=== PATIENT | female | born 1945 | race Caucasian/White ===

== ENCOUNTER → 2016-09-15 | Outpatient (CLI) | payer BC ==
[~2016-09-15] MED LIST: AMOX500T3 PO; CHOL1000 PO; CHOL100010 PO; FERR325T18 PO; FERR325T74 PO; HYDR25TA4 PO; LEVO100T PO; LEVO112T4 PO; LOSA1TAB38 PO; METO1TAB66 PO; NYSO15 TOP; NYSTOIN5 TOP; WARF5TAB7 PO; WARF5TAB90 PO; WARF6TAB5 PO; ZCR20 PO
--- NOTE | 2016-09-15 13:11 | DIAGNOSTIC IMAGING REPORT ---
RIGHT KNEE MRI HISTORY: Right knee pain. COMPARISON STUDY: Right knee 05/08/2016. TECHNIQUE: Multiplanar multisequence MRI of the right knee was performed according to standard department protocol without the use of contrast. FINDINGS: Menisci: There is a horizontal tear through the body of the lateral meniscus. This is best seen on coronal image 16. The medial meniscus is intact. Ligaments: The anterior and posterior cruciate ligaments are intact. The medial and lateral collateral ligaments are normal in appearance. Extensor mechanism: The quadriceps tendon and patellar ligament are intact. Articular cartilage and bone: No fracture or dislocation. Normal marrow signal intensity seen throughout the visualized osseous structures. The medial and lateral cartilage spaces are intact for age. There is a cartilage fissure at the lateral patellar facet and extend to the median ridge. Joint effusion: Trace. Soft tissues: Mild subcutaneous edema within the knee. There is a small popliteal cyst. There is a 4 mm intra-articular loose body posterior to the medial meniscus. IMPRESSION: 1. Small horizontal tear through the body of the lateral meniscus. 2. A 4 mm intra-articular loose body posterior to the medial meniscus. 3. Trace joint effusion. 4. Small popliteal cyst. 5. Cartilage fissure at the patella. Electronically signed by: Gerson Tian M.D. 09/15/2016 1:09 PM Dictated Date/Time: 09/15/2016 1:02 PM
== END | disposition home or self-care (01) ==
LOC: C.MRIBC 11:29
PROVIDERS: ATTEND Orthopaedic Surgery
DX: S83.281A Other tear of lateral meniscus, current injury, right knee, initial encounter (principal); X58.XXXA Exposure to other specified factors, initial encounter

== ENCOUNTER → 2016-10-23 | Outpatient (CLI) | payer BC ==
[2016-10-23 17:25] LABS: ALT/SGPT 20 U/L (12-78); BLOOD UREA NITROGEN 28 mg/dl (7-18); BUN/CREATININE RATIO 28.3 (10-20); CALCIUM 8.5 mg/dl (8.5-10.1); CARBON DIOXIDE 26 mmol/L (21-32); CHLORIDE 103 mmol/L (98-107); CREATININE 0.98 mg/dl (0.60-1.20); GLUCOSE 84 mg/dl (70-99); SODIUM 137 mmol/L (136-145)
[2016-10-23 17:35] LABS: ALB/GLOB RATIO 0.9 (0.9-2); ALKALINE PHOSPHATASE 156 U/L (45-117); AST/SGOT 23 U/L (15-37); THYROID STIMULATING HORMONE 0.182 uIu/ml (0.300-4.500)
[2016-10-23 17:37] LABS: BASO % 0.5 %; BASO ABS # 0.03 K/uL (0-0.2); COMPLETE YES; EOS % 2.9 %; HEMATOCRIT 36.2 % (37-47); LYMPH % 18.7 %; LYMPH ABS # 1.03 K/uL (1.2-3.4); MEAN CORPUSCULAR HEMOGLOBIN 26.6 pg (25-34); MEAN PLATELET VOLUME 10.6 fL (7.4-10.4); MONO % 8.7 %; NEUT % 69.2 %; PLATELET COUNT 332 K/uL (130-400); RED BLOOD COUNT 4.36 M/uL (4.2-5.4)
[2016-10-24 06:14] LABS: ESTIMATED AVERAGE GLUCOSE 120 mg/dl; HA1C FLAG Normal (Normal)
== END | disposition home or self-care (01) ==
LOC: C.LABBFT 12:09
PROVIDERS: ATTEND Internal Medicine
DX: I10 Essential (primary) hypertension (principal); R73.03 Prediabetes; E55.9 Vitamin D deficiency, unspecified; E03.9 Hypothyroidism, unspecified; Z95.2 Presence of prosthetic heart valve; R73.09 Other abnormal glucose

== ENCOUNTER → 2016-11-03 | Outpatient (CLI) | payer BC ==
[2016-11-03 12:35] LABS: URINE APPEARANCE CLOUDY (CLEAR); URINE BILIRUBIN NEG (NEG); URINE COLOR YELLOW; URINE EPITHELIAL CELL AUTO >30 /lpf (0-5); URINE NITRITE NEG (NEG); URINE SPECIFIC GRAVITY 1.008 (1.000-1.030); UROBILINOGEN NEG (NEG); ZZUR CULT IF INDIC CLEAN CATCH NO
[2016-11-03 12:39] LABS: MANUAL MICROSCOPIC REQUIRED? NO; REVIEW REQ? NO
== END | disposition home or self-care (01) ==
LOC: C.LABBFT 09:11
PROVIDERS: ATTEND Internal Medicine
DX: I10 Essential (primary) hypertension (principal); E78.5 Hyperlipidemia, unspecified

== ENCOUNTER → 2016-11-27 | Outpatient (CLI) | payer BC ==
[~2016-11-27] MED LIST changes: +METO-452 PO; -METO1TAB66 PO
== END | disposition home or self-care (01) ==
LOC: C.LABBFT 15:41
PROVIDERS: ATTEND Physician Assistant Medical
DX: E03.9 Hypothyroidism, unspecified (principal)

== ENCOUNTER 2017-04-16 00:10 | Emergency (ER) | payer BC ==
[~2017-04-16] VITALS: Ht 171.5 cm; Wt 91.9 kg
[~2017-04-16 00:10] MED LIST changes: -CHOL1000 PO; -FERR325T18 PO; -LEVO100T PO; -METO-452 PO; +METO1TAB66 PO; -NYSTOIN5 TOP; -WARF5TAB90 PO
[2017-04-16 00:14] VITALS: TEMP 36.8; Ht 171.5 cm; Wt 91.9 kg
[2017-04-16] MEDS ORDERED: HydrALAZINE HCL 20 MG/ML VIAL IV. STA (00:31)
[2017-04-16] MEDS ORDERED: LEVO100T PO (00:44)
[2017-04-16] MEDS ORDERED: CHOL1000 PO (00:44)
--- NOTE | 2017-04-16 00:45 | EMERGENCY ROOM VISIT NOTE ---
"History Report prepared by Brandon: Dniorah Tejada Under the Supervision of: Dr. Jonas Lundberg M.D. First contact with patient: 00:22 Chief Complaint: HYPERTENSION Stated Complaint: BLOOD PRESSURE HIGH,HEART History of Present Illness The patient is a 71 year old female who presents to the Emergency Room with complaints of an episode of hypertension starting this evening. The patient notes that she has had chest pressure for 2 days. She states that while watching TV this evening she got a warm feeling that started in her head and radiated down into her chest. She reports that she checked her blood pressure and it was high. She states that she does not have the chest pressure currently. The patient denies abdominal pain, shortness of breath, swelling in legs, urinary symptoms, and recent stress tests and heart catheterizations. The patient notes that she took her blood pressure before coming in. She states that she is on Metoprol 100 mg PID, Hydrochlorothiazide 25 mg daily, and Losartan 100 mg daily. She notes that she is on Coumadin. Source of History: patient Onset: this evening Position: other (global) Quality: other (global) Timing: other (episode) Associated Symptoms: + chest pain, No SOB, No abdominal pain, No urinary symptoms Note: The patient denies swelling in legs and recent stress tests and heart catheterizations. Review of Systems See HPI for pertinent positives & negatives. A total of 10 systems reviewed and were otherwise negative. Past Medical & Surgical Medical Problems: (1) Anticoagulant long-term use (2) Carotid stenosis (3) High cholesterol (4) History of epistaxis (5) HTN (hypertension) Surgical Problems: (1) S/P AVR (aortic valve replacement) Family History No pertinent family history Social History Smoking Status: Never Smoker Drug Use: none Marital Status: single Housing Status: lives alone Occupation Status: employed Current/Historical Medications Scheduled Cholecalciferol (Vitamin D3), 1,000 UNIT PO DAILY Ferrous Gluconate (Ferrous Gluconate), 324 MG PO 2XWK Hydrochlorothiazide (Hctz), 25 MG PO QAM Levothyroxine Sodium (Synthroid), 100 MCG PO QAM Losartan Potassium (Cozaar), 100 MG PO QAM Metoprolol Succinate (Toprol Xl), 50 MG PO BID Nystatin/Triamcinolone (Mycogen ||), 1 APPLN TOP BID Simvastatin (Simvastatin), 20 MG PO QPM Warfarin Sodium (Coumadin), 5 MG PO UD Allergies Coded Allergies: No Known Allergies (Unverified , 04/16/17) Physical Exam Vital Signs Date Time Temp Pulse Resp B/P (MAP) Pulse Ox O2 Delivery O2 Flow Rate FiO2 04/16/17 03:07 61 18 161/85 96 04/16/17 01:30 56 18 130/70 96 Room Air 04/16/17 01:06 59 18 158/80 97 Room Air 04/16/17 01:02 60 04/16/17 01:01 55 18 162/79 97 Room Air 04/16/17 00:14 36.8 72 20 206/87 98 Room Air Physical Exam GENERAL: Patient is mildly anxious appearing and in no acute distress. HEENT: No acute trauma, normocephalic atraumatic, mucous membranes moist, no nasal congestion, no scleral icterus. NECK: No stridor, no adenopathy, no meningismus, trachea is midline. LUNGS: No dyspnea. Clear to auscultation and equal bilaterally. No wheeze, no rhonchi. HEART: Regular rate and rhythm. Metallic heart click. No murmurs, rubs, gallops appreciated. ABDOMEN: Soft, nontender, bowel sounds positive, no masses appreciated, no peritonitis. BACK: No midline tenderness, no CVA tenderness EXTREMITIES: Normal motion all extremities, no cyanosis, no edema. NEUROLOGIC: Alert and oriented, no acute motor or sensory deficits, no focal weakness, cranial nerves grossly intact. SKIN: No rash, no jaundice, no diaphoresis. Medical Decision & Procedures ER Provider Diagnostic Interpretation: X ray results are stated below per my interpretation: Chest: 1 view: No infiltrate, no effusion, normal cardiac border. Elevated left sheila diaphragm. Similar to previous. Laboratory Results 04/16/17 00:45 Red Blood Count 4.20, Mean Corpuscular Volume 85.5, Mean Corpuscular Hemoglobin 27.6, Mean Corpuscular Hemoglobin Concent 32.3, Mean Platelet Volume 10.3, Neutrophils (%) (Auto) 63.6, Lymphocytes (%) (Auto) 22.1, Monocytes (%) (Auto) 9.7, Eosinophils (%) (Auto) 4.1, Basophils (%) (Auto) 0.3, Neutrophils # (Auto) 3.69, Lymphocytes # (Auto) 1.28, Monocytes # (Auto) 0.56, Eosinophils # (Auto) 0.24, Basophils # (Auto) 0.02 04/16/17 00:45 Test 04/16/17 00:45 04/16/17 00:57 04/16/17 02:36 White Blood Count 5.80 K/uL (4.8-10.8) Red Blood Count 4.20 M/uL (4.2-5.4) Hemoglobin 11.6 g/dL (12.0-16.0) Hematocrit 35.9 % (37-47) Mean Corpuscular Volume 85.5 fL (80-100) Mean Corpuscular Hemoglobin 27.6 pg (25-34) Mean Corpuscular Hemoglobin Concent 32.3 g/dl (32-36) Platelet Count 214 K/uL (130-400) Mean Platelet Volume 10.3 fL (7.4-10.4) Neutrophils (%) (Auto) 63.6 % Lymphocytes (%) (Auto) 22.1 % Monocytes (%) (Auto) 9.7 % Eosinophils (%) (Auto) 4.1 % Basophils (%) (Auto) 0.3 % Neutrophils # (Auto) 3.69 K/uL (1.4-6.5) Lymphocytes # (Auto) 1.28 K/uL (1.2-3.4) Monocytes # (Auto) 0.56 K/uL (0.11-0.59) Eosinophils # (Auto) 0.24 K/uL (0-0.5) Basophils # (Auto) 0.02 K/uL (0-0.2) RDW Standard Deviation 49.2 fL (36.4-46.3) RDW Coefficient of Variation 15.7 % (11.5-14.5) Immature Granulocyte % (Auto) 0.2 % Immature Granulocyte # (Auto) 0.01 K/uL (0.00-0.02) Prothrombin Time 16.3 SECONDS (9.0-12.0) Prothromb Time International Ratio 1.5 (0.9-1.1) Anion Gap 5.0 mmol/L (3-11) Est Creatinine Clear Calc Drug Dose 63.7 ml/min Estimated GFR () 68.2 Estimated GFR (Non- 58.9 BUN/Creatinine Ratio 16.9 (10-20) Calcium Level 8.2 mg/dl (8.5-10.1) Troponin I < 0.015 ng/ml (0-0.045) Urine Color YELLOW Urine Appearance CLEAR (CLEAR) Urine pH 5.0 (4.5-7.5) Urine Specific [place] 1.012 (1.000-1.030) Urine Protein NEG (NEG) Urine Glucose (UA) NEG (NEG) Urine Ketones NEG (NEG) Urine Occult Blood NEG (NEG) Urine Nitrite NEG (NEG) Urine Bilirubin NEG (NEG) Urine Urobilinogen NEG (NEG) Urine Leukocyte Esterase MODERATE (NEG) Urine WBC (Auto) 5-10 /hpf (0-5) Urine RBC (Auto) 0-4 /hpf (0-4) Urine Hyaline Casts (Auto) 1-5 /lpf (0-5) Urine Epithelial Cells (Auto) >30 /lpf (0-5) Urine Bacteria (Auto) NEG (NEG) Bedside Troponin I < 0.030 ng/ml (0-0.045) Laboratory results as reviewed by me. ECG Indication: other (hypertension) Rate (beats per minute): 67 Rhythm: sinus rhythm Findings: 1st degree AV block, nonspecific-ST abn (without STEMI), no ectopy ED Course 0025: The patient was evaluated in room B11B. A complete history and physical exam was performed. 0031: Ordered Hydralazine HCl 10 mg IV. 0104: The patient's blood pressure came down before the medication could be delivered. 0202: I reevaluated the patient. Her blood pressure was 130/68. The patient is experiencing no further symptoms. I discussed observation vs repeat troponin and a follow up with PCP as our future plans. She notes she would rather be discharged and follow up with her PCP, but repeat her troponin first. 0259: Reevaluated the patient. Discussed results and discharge instructions: She verbalized understanding and agreement. The patient is ready for discharge. Medical Decision Differential: Benign Hypertension, Hypertensive Urgency/Emergency, Cardiovascular Pathology, Endocrine, Metabolic/Electrolyte, Renal Disease, End- organ Damage, amongst other pathologies entertained. 71 yr old pleasant female arrives for evaluation of hypertension. Notes a few episodes of fleeting anterior chest pain a few days ago though none in last 24 hours. Tonight with feeling flushed/head fullness which lead to checking BP which was elevated. Thus came in to ED for further evaluation. Admits taking BP meds [employer] and while here BP trending to normal without intervention. CXR, EKG , OK. Trop wnl x 2. Inr on low side for mechanical valve though she notes they keep her around 1.9-2.5 and she will discuss this evenings INR with PCP. No evidence infection. UA dirty without evidence of acute infection. We discussed bringing in for cardiac rule out though would be obs and she has close monitoring with cards and her PCP. We discussed that Trop negative means unlikely there was cardiac ischemia, however it does not rule out narrowing of arteries and that with her history she could have ACS any time in further and thus symptoms requiring RTED. She is comfortable with this plan and agrees. She did eventually admit to me that she has been very stressed recently due to family issues and feels that much of this is stress related, which I accepted is a definitive possibility. She will discuss this as well with her PCP. Medication Reconcilliation Current Medication List: was personally reviewed by me Blood Pressure Screening Patient's blood pressure: Elevated blood pressure Blood pressure disposition: Referred to PCP Impression Primary Impression: Hypertension Additional Impression: Chest pain Scribe Attestation The scribe's documentation has been prepared under my direction and personally reviewed by me in its entirety. I confirm that the note above accurately reflects all work, treatment, procedures, and medical decision making performed by me. Departure Information Dispostion Home / Self-Care Referrals Antony Rodriguez M.D. (PCP) Forms HOME CARE DOCUMENTATION FORM, IMPORTANT VISIT INFORMATION, WORK / SCHOOL INSTRUCTIONS Patient Instructions My [facility] Additional Instructions Your blood pressure was elevated during this visit. This is quite common in many people who are being evaluated in the Emergency Department for many reasons. However, it is important that you have your Primary Care Provider recheck your blood pressure and discuss whether treatment will be needed. [facility] elevated blood pressure can lead to strokes, heart attacks, kidney failure amongst other medical issues. If you develop severe headaches, chest pain, weakness in arms or legs, or other concerning symptoms call 911. Chest pain can be due to a variety of reasons. At this time there is no evidence of heart damage, however this does not rule out any narrowing of arteries. You should call your primary care provider or skip tender as soon as possible to set up appointment for further testing and evaluation, which may including stress testing. If you develop worsening chest pain/pressure, prolonged symptoms, passing out, shortness of breath, or other concerns, call 911 or return immediately for further evaluation. Your INR was 1.5 this evening. This is on the low side and should be discussed with your Coumadin clinic. They may wish you to increase your Coumadin, or just repeat your INR during normal hours. Problem Qualifiers"
[2017-04-16] MEDS ORDERED: WARF5TAB90 PO (00:47)
[2017-04-16] MEDS ORDERED: FERR325T18 PO (00:47)
[2017-04-16] MEDS ORDERED: NYSTOIN5 TOP (00:49)
[2017-04-16 01:03] LABS: BASO % 0.3 %; BASO ABS # 0.02 K/uL (0-0.2); COMPLETE YES; EOS % 4.1 %; HEMATOCRIT 35.9 % (37-47); IG% 0.2 %; LYMPH % 22.1 %; LYMPH ABS # 1.28 K/uL (1.2-3.4); MEAN CELL VOLUME 85.5 fL (80-100); MEAN CORPUSCULAR HEMOGLOBIN 27.6 pg (25-34); MEAN CORPUSCULAR HGB CONC 32.3 g/dl (32-36); MEAN PLATELET VOLUME 10.3 fL (7.4-10.4); MONO % 9.7 %; NEUT % 63.6 %; PLATELET COUNT 214 K/uL (130-400)
[2017-04-16 01:14] LABS: URINE APPEARANCE CLEAR (CLEAR); URINE BILIRUBIN NEG (NEG); URINE COLOR YELLOW; URINE EPITHELIAL CELL AUTO >30 /lpf (0-5); URINE NITRITE NEG (NEG); URINE SPECIFIC GRAVITY 1.012 (1.000-1.030); UROBILINOGEN NEG (NEG); ZZUR CULT IF INDIC CLEAN CATCH NO
[2017-04-16 01:27] LABS: BLOOD UREA NITROGEN 17 mg/dl (7-18); BUN/CREATININE RATIO 16.9 (10-20); CALCIUM 8.2 mg/dl (8.5-10.1); CARBON DIOXIDE 28 mmol/L (21-32); CHLORIDE 108 mmol/L (98-107); CREATININE 0.98 mg/dl (0.60-1.20); GLUCOSE 104 mg/dl (70-99); POTASSIUM 3.7 mmol/L (3.5-5.1); SODIUM 141 mmol/L (136-145)
[2017-04-16 01:40] LABS: MANUAL MICROSCOPIC REQUIRED? NO; REVIEW REQ? NO
[2017-04-16 02:07] LABS: INR 1.5 (0.9-1.1); PROTHROMBIN TIME (PATIENT) 16.3 SECONDS (9.0-12.0)
[2017-04-16 03:07] VITALS: BP 161/85; PULSE 61; O2SAT 96
--- NOTE | 2017-04-16 07:27 | DIAGNOSTIC IMAGING REPORT ---
CHEST ONE VIEW PORTABLE CLINICAL HISTORY: Hypertension. COMPARISON STUDY: Chest radiograph March 13, 2016. FINDINGS: There are median sternotomy wires. Moderate elevation of the left hemidiaphragm is unchanged. Linear left basilar opacity is suggestive of atelectasis. Moderate cardiomegaly is unchanged. Pulmonary vascularity is normal. There are old left rib fractures. There is no pneumothorax or consolidation to suggest pneumonia. IMPRESSION: No acute cardiopulmonary findings. No change in appearance of the chest. Electronically signed by: Ronnell Montoya M.D. 04/16/2017 7:25 AM Dictated Date/Time: 04/16/2017 7:24 AM
== END 2017-04-16 03:07 | disposition home or self-care (01) ==
LOC: C.EDB 00:11
DX: I10 Essential (primary) hypertension (principal); R07.9 Chest pain, unspecified; E78.00 Pure hypercholesterolemia, unspecified; I77.1 Stricture of artery; Z95.2 Presence of prosthetic heart valve; Z79.01 Long term (current) use of anticoagulants; Z79.899 Other long term (current) drug therapy

== ENCOUNTER → 2017-05-31 | Outpatient (CLI) | payer BC ==
[~2017-05-31] MED LIST changes: -AMOX500T3 PO; +CHOL1000 PO; -CHOL100010 PO; +FERR325T18 PO; -FERR325T74 PO; +LEVO100T PO; -LEVO112T4 PO; -NYSO15 TOP; +NYSTOIN5 TOP; -WARF5TAB7 PO; +WARF5TAB90 PO; -WARF6TAB5 PO
[2017-05-31 17:56] LABS: ALT/SGPT 20 U/L (12-78); AST/SGOT 20 U/L (15-37); BLOOD UREA NITROGEN 20 mg/dl (7-18); BUN/CREATININE RATIO 21.5 (10-20); CALCIUM 8.4 mg/dl (8.5-10.1); CARBON DIOXIDE 26 mmol/L (21-32); CHLORIDE 107 mmol/L (98-107); CREATININE 0.95 mg/dl (0.60-1.20); GLUCOSE 91 mg/dl (70-99); POTASSIUM 3.8 mmol/L (3.5-5.1); SODIUM 140 mmol/L (136-145)
[2017-05-31 18:07] LABS: ALKALINE PHOSPHATASE 139 U/L (45-117); THYROID STIMULATING HORMONE 0.356 uIu/ml (0.300-4.500)
[2017-05-31 18:24] LABS: CHOLESTEROL/HDL RATIO 4.1
== END | disposition home or self-care (01) ==
LOC: C.LABBFT 12:26
PROVIDERS: ATTEND Internal Medicine
DX: E78.5 Hyperlipidemia, unspecified (principal); E03.9 Hypothyroidism, unspecified; R73.03 Prediabetes; I10 Essential (primary) hypertension

== ENCOUNTER → 2017-06-21 | Outpatient (CLI) | payer BC ==
[~2017-06-21] MED LIST changes: +METO-452 PO; -METO1TAB66 PO
== END | disposition home or self-care (01) ==
LOC: C.LABBFT 14:08
PROVIDERS: ATTEND Physician Assistant Medical
DX: I10 Essential (primary) hypertension (principal)

== ENCOUNTER → 2017-11-09 | Outpatient (CLI) | payer BC ==
[2017-11-09 13:39] LABS: ALBUMIN 3.4 gm/dl (3.4-5.0); ALT/SGPT 19 U/L (12-78); BLOOD UREA NITROGEN 17 mg/dl (7-18); CALCIUM 8.6 mg/dl (8.5-10.1); CARBON DIOXIDE 28 mmol/L (21-32); CHOLESTEROL 143 mg/dl (0-200); CREATININE 0.87 mg/dl (0.60-1.20); GLUCOSE 99 mg/dl (70-99); POTASSIUM 3.9 mmol/L (3.5-5.1); SODIUM 142 mmol/L (136-145)
[2017-11-09 13:52] LABS: ALKALINE PHOSPHATASE 140 U/L (45-117); AST/SGOT 17 U/L (15-37); LDL CHOLESTEROL CALCULATED 69 mg/dl; TOTAL PROTEIN 6.9 gm/dl (6.4-8.2)
== END | disposition home or self-care (01) ==
LOC: C.LABBFT 09:37
PROVIDERS: ATTEND Internal Medicine
DX: Z00.00 Encounter for general adult medical examination without abnormal findings (principal); E03.9 Hypothyroidism, unspecified; I10 Essential (primary) hypertension; E78.5 Hyperlipidemia, unspecified; D64.9 Anemia, unspecified

== ENCOUNTER → 2017-11-27 | Outpatient (CLI) | payer BC | END | disposition home or self-care (01) | LOC: C.MAMM 13:13 | PROVIDERS: ATTEND Internal Medicine | DX: M85.88 Other specified disorders of bone density and structure, other site (principal) ==

== ENCOUNTER → 2018-01-01 | Outpatient (CLI) | payer BC ==
[2018-01-01 17:39] LABS: BASO % 0.3 %; BASO ABS # 0.02 K/uL (0-0.2); EOS % 2.6 %; EOS ABS # 0.19 K/uL (0-0.5); HEMATOCRIT 37.1 % (37-47); HEMOGLOBIN 12.1 g/dL (12.0-16.0); IG# 0.02 K/uL (0.00-0.02); LYMPH % 13.7 %; LYMPH ABS # 0.99 K/uL (1.2-3.4); MEAN CELL VOLUME 87.9 fL (80-100); MEAN CORPUSCULAR HEMOGLOBIN 28.7 pg (25-34); MEAN CORPUSCULAR HGB CONC 32.6 g/dl (32-36); MEAN PLATELET VOLUME 10.7 fL (7.4-10.4); MONO % 5.5 %; NEUT % 77.6 %; PLATELET COUNT 268 K/uL (130-400); RED CELL DISTRIBUTION WIDTH CV 14.9 % (11.5-14.5); RED CELL DISTRIBUTION WIDTH SD 47.7 fL (36.4-46.3); WHITE BLOOD COUNT 7.22 K/uL (4.8-10.8)
[2018-01-01 18:23] LABS: ALBUMIN 3.6 gm/dl (3.4-5.0); ALT/SGPT 17 U/L (12-78); AST/SGOT 16 U/L (15-37); BLOOD UREA NITROGEN 25 mg/dl (7-18); CALCIUM 8.3 mg/dl (8.5-10.1); CARBON DIOXIDE 27 mmol/L (21-32); CREATININE 1.07 mg/dl (0.60-1.20); GLUCOSE 111 mg/dl (70-99); POTASSIUM 4.1 mmol/L (3.5-5.1); SODIUM 140 mmol/L (136-145)
[2018-01-01 18:34] LABS: ALKALINE PHOSPHATASE 154 U/L (45-117); TOTAL PROTEIN 7.9 gm/dl (6.4-8.2)
== END | disposition home or self-care (01) ==
LOC: C.LABBFT 14:46
PROVIDERS: ATTEND Physician Assistant Medical
DX: M25.50 Pain in unspecified joint (principal)

== ENCOUNTER → 2018-01-09 | Outpatient (CLI) | payer BC ==
--- NOTE | 2018-01-09 10:38 | DIAGNOSTIC IMAGING REPORT ---
R KNEE 1 OR 2 VIEWS ROUTINE CLINICAL HISTORY: 72 years-old Female presenting with KNEE PAIN. TECHNIQUE: Frontal and lateral views of the right knee were obtained. COMPARISON: 05/08/2016. FINDINGS: Knee joint congruent. Joint spaces preserved. Minimal osteophytosis in the medial compartment. No acute fracture or malalignment. No advanced degenerative change. No radiographic soft tissue abnormality. IMPRESSION: 1. No acute osseous injury. 2. Minimal degenerative changes in the medial compartment. Electronically signed by: Ashwin Goel M.D. 01/09/2018 10:37 AM Dictated Date/Time: 01/09/2018 10:36 AM
--- NOTE | 2018-01-09 10:40 | DIAGNOSTIC IMAGING REPORT ---
R WRIST MIN 3 VIEWS ROUTINE CLINICAL HISTORY: M25.511 Pain in joint of right [id number] right wrist pain COMPARISON: None. DISCUSSION: No fractures or dislocations are visualized. There are no erosive or destructive changes. The bones are mildly osteopenic IMPRESSION: Unremarkable conventional radiographic evaluation of the right wrist for age. Electronically signed by: Shiraz Dawn M.D. 01/09/2018 10:39 AM Dictated Date/Time: 01/09/2018 10:38 AM
--- NOTE | 2018-01-09 10:47 | DIAGNOSTIC IMAGING REPORT ---
L KNEE 1 OR 2 VIEWS ROUTINE CLINICAL HISTORY: 72 years-old Female presenting with M25.561 Knee pain, [id number]. TECHNIQUE: Frontal and lateral views of the left knee were obtained. COMPARISON: None. FINDINGS: Knee joint congruent. No significant joint space loss. No acute fracture or malalignment. No advanced degenerative change. No radiographic soft tissue abnormality. IMPRESSION: No acute osseous injury. Electronically signed by: Ashiwn Goel M.D. 01/09/2018 10:46 AM Dictated Date/Time: 01/09/2018 10:45 AM
--- NOTE | 2018-01-09 10:53 | DIAGNOSTIC IMAGING REPORT ---
RIGHT SHOULDER 3 VIEWS CLINICAL HISTORY: Right shoulder pain. FINDINGS: 3 views of the right shoulder are compared to study dated 01/11/2015. The skeletal structures are osteopenic. No fracture or dislocation is identified. Mild productive change is seen at the acromioclavicular joint. Mild arthritic change and bony sclerosis is noted in the greater tuberosity of the humeral head. The overlying soft tissues are within normal limits. The imaged right lung parenchyma is clear. IMPRESSION: 1. No acute bony abnormality is seen in the right shoulder. 2. Osteopenia and mild degenerative change as above. Electronically signed by: Azael Cool M.D. 01/09/2018 10:51 AM Dictated Date/Time: 01/09/2018 10:50 AM
--- NOTE | 2018-01-09 12:26 | DIAGNOSTIC IMAGING REPORT ---
L WRIST MIN 3 VIEWS ROUTINE CLINICAL HISTORY: 72 years-old Female presenting with M25.511 Pain in joint of right [id number] pain in both wrists. TECHNIQUE: Frontal, bilateral oblique, and lateral views of the left wrist were obtained. COMPARISON: None. FINDINGS: Osteopenia may be present. Tiny a separate fragment at the ulnar styloid may suggest prior fracture. No acute fracture or malalignment. No advanced degenerative change. No radiographic soft tissue abnormality. IMPRESSION: 1. No acute osseous injury. 2. Osteopenia suspected. 3. Possible old ulnar styloid fracture. Electronically signed by: Ashwin Goel M.D. 01/09/2018 12:25 PM Dictated Date/Time: 01/09/2018 12:24 PM
[2018-01-09 12:31] LABS: TRANSFERRIN 298 mg/dl (200-360)
== END | disposition home or self-care (01) ==
LOC: C.RAD1850 09:25
PROVIDERS: ATTEND Internal Medicine Rheumatology
DX: M25.511 Pain in right shoulder (principal); M25.531 Pain in right wrist; M25.532 Pain in left wrist; M25.561 Pain in right knee; M25.562 Pain in left knee; M85.811 Other specified disorders of bone density and structure, right shoulder

== ENCOUNTER → 2018-01-14 | Outpatient (CLI) | payer BC ==
--- NOTE | 2018-01-14 14:35 | DIAGNOSTIC IMAGING REPORT ---
RIGHT SHOULDER MRI HISTORY: RT SHOULDER JOINT PAIN TECHNIQUE: Multiplanar multisequence MRI of the right shoulder was performed without contrast. COMPARISON STUDY: Right shoulder 01/09/2018. FINDINGS: AC joint: Moderate AC joint arthrosis demonstrated by joint space narrowing, joint fluid, and subchondral cystic change. Rotator cuff: The subscapularis and teres minor tendons are intact. Partial undersurface tear involving the infraspinatus tendon. Full-thickness tear involving the anterior 50% of the supraspinatus tendon with associated 2.6 cm of retraction. The posterior fibers of the residual supraspinatus tendon demonstrate a high-grade partial undersurface tear. Moderate fatty atrophy of the supraspinatus muscle. Fluid within the subacromial/subdeltoid space due to the full-thickness rotator cuff tear. Labrum: Abnormal linear signal within the superior labrum consistent with a SLAP tear. Biceps tendon: Abnormal signal within the proximal long head of the biceps tendon consistent with a tendinopathy. Bones: No fracture or dislocation. Cartilage: Moderate cartilage thinning within the superior aspect of the humeral head and mild cartilage thinning at the glenoid. Miscellaneous: No significant joint effusion. IMPRESSION: 1. Full-thickness tear involving the anterior 50% of the supraspinatus tendon with associated retraction and fatty atrophy of the muscle. 2. Partial undersurface tear of the infraspinatus tendon. 3. SLAP tear. 4. Tendinopathy involving the proximal long head of the biceps. 5. Moderate AC joint arthrosis. Electronically signed by: Gerson Tian M.D. 01/14/2018 2:34 PM Dictated Date/Time: 01/14/2018 2:23 PM
== END | disposition home or self-care (01) ==
LOC: C.MRI 13:28
PROVIDERS: ATTEND Internal Medicine Rheumatology
DX: S46.912A Strain of unspecified muscle, fascia and tendon at shoulder and upper arm level, left arm, initial encounter (principal); X58.XXXA Exposure to other specified factors, initial encounter; M62.512 Muscle wasting and atrophy, not elsewhere classified, left shoulder; M19.012 Primary osteoarthritis, left shoulder; M25.561 Pain in right knee; M25.562 Pain in left knee; M25.539 Pain in unspecified wrist

== ENCOUNTER → 2018-03-08 | Outpatient (CLI) | payer BC ==
[~2018-03-08] MED LIST changes: -FERR325T18 PO; -METO-452 PO; +OXYC-57 PO; +PLQ200 PO
[2018-03-08 12:24] LABS: BLOOD UREA NITROGEN 25 mg/dl (7-18); CALCIUM 8.8 mg/dl (8.5-10.1); CARBON DIOXIDE 26 mmol/L (21-32); CREATININE 1.16 mg/dl (0.60-1.20); GLUCOSE 91 mg/dl (70-99); POTASSIUM 4.5 mmol/L (3.5-5.1); SODIUM 140 mmol/L (136-145)
[2018-03-08 12:26] LABS: PTT PATIENT 33.4 SECONDS (21.0-31.0)
== END | disposition home or self-care (01) ==
LOC: C.CPL 18:42
PROVIDERS: ATTEND Orthopaedic Surgery
DX: Z01.812 Encounter for preprocedural laboratory examination (principal); Z01.810 Encounter for preprocedural cardiovascular examination

== ENCOUNTER 2018-04-05 08:12 | Day surgery (SDC) | payer BC ==
[2018-03-01 10:00] VITALS: BMI 28.0
--- NOTE | 2018-03-08 11:20 | PAT Medication Instructions ---
"Service Date Mar 08, 2018. Current Home Medication List Cholecalciferol (Vitamin D3), 1,000 UNIT PO QAM Hydrochlorothiazide (Hctz), 25 MG PO QAM Hydroxychloroquine Sulfate (Hydroxychloroquine Sulfat), 1 TAB PO QAM Levothyroxine Sodium (Synthroid), 100 MCG PO QAM Losartan Potassium (Cozaar), 100 MG PO QAM Nystatin/Triamcinolone (Mycogen ||), 1 APPLN TOP UD Simvastatin (Simvastatin), 20 MG PO QPM Warfarin Sodium (Coumadin), 1 DOSE PO UD Medication Instructions For Your Scheduled Surgery - Per surgeon and prescribing physician for instructions: Warfarin Sodium (Coumadin), 1 DOSE PO UD Hydroxychloroquine Sulfate (Hydroxychloroquine Sulfat), 1 TAB PO QAM - Hold the following medications 24 hours prior to surgery: Nystatin/Triamcinolone (Mycogen ||), 1 APPLN TOP UD - Hold the following medications the morning of surgery: Cholecalciferol (Vitamin D3), 1,000 UNIT PO QAM Hydrochlorothiazide (Hctz), 25 MG PO QAM Losartan Potassium (Cozaar), 100 MG PO QAM - Take the following medications the morning of surgery with a sip of water: Levothyroxine Sodium (Synthroid), 100 MCG PO QAM - Take the following medications as scheduled the night before surgery: Simvastatin (Simvastatin), 20 MG PO QPM If you have any questions please call us at [phone] or [phone] or [phone]"
--- NOTE | 2018-04-03 08:02 | HISTORY & PHYSICAL EXAMINATION ---
DATE OF ADMISSION: 04/05/2018 CHIEF COMPLAINT: Right shoulder pain. HISTORY OF PRESENT ILLNESS: Meg is a pleasant 72-year-old female who has been having several-month history of increasing right shoulder pain. She denies any trauma to her shoulder. It did start about 2 years ago when she slipped and fell, she had minimal pain and discomfort then. Unfortunately, over the last couple of months, her pain significantly increased. We noticed more, more weakness of her shoulder, so I am concerned for rotator cuff tear, so we sent her for an MRI. The MRI did show a medium-sized rotator cuff tear. After failing conservative treatment, she has elected to proceed with an arthroscopic right rotator cuff repair. PAST MEDICAL HISTORY: Significant for heart disease, mitral valve prolapse, hypothyroidism, hyperlipidemia and hypertension. MEDICATIONS: Include Coumadin, metoprolol, simvastatin, Synthroid, hydrochlorothiazide, losartan, Nystatin, vitamin D. PAST SURGICAL HISTORY: Significant for appendectomy, hysterectomy and aortic valve replacement in 1990. ALLERGIES: None. FAMILY HISTORY: Significant for heart disease, blood clots, and breast cancer. SOCIAL HISTORY: The patient is , never drinks, remains active. REVIEW OF SYSTEMS: She complains mostly of right shoulder pain. All other pertinent review of systems are negative. PHYSICAL EXAMINATION: GENERAL: She is awake, alert and oriented x3. She is in no apparent distress. She is very pleasant. HEENT: Pupils are equal, round, reactive to light. Extraocular movements intact. Oral mucosa pink and moist. HEART: Regular rate per radial pulse. LUNGS: Gracie symmetrically bilaterally with no audible breath sounds. ABDOMEN: Soft, nontender, nondistended. MUSCULOSKELETAL: On physical examination of the shoulder, she has full active range of motion. She has 4/5 muscle strength with full can testing, 5/5 muscle strength with external rotation. Negative bear hug and belly press test. She has tenderness to palpation over the far anterior lateral subacromial space. No AC joint or biceps pain in the office. IMAGING DATA: MRI of the shoulder shows a full thickness tear of the anterior supraspinatus with retraction back to the mid humeral head. There is minimal muscle belly atrophy. IMPRESSION: Medium-sized right rotator cuff tear. PLAN: We will proceed with an arthroscopic right rotator cuff repair. Postoperatively, she will be placed in an arm sling and discharged to home on oral pain medications.
[~2018-04-05] VITALS: Ht 172.7 cm; Wt 84.5 kg
[~2018-04-05 08:12] MED LIST changes: +CEFAZOLIN 2000MG IV PUSH 15 ML IV SCH; +DEXAMETHASONE SOD INJ 4 MG/ML VIAL ONE; +FENTANYL CITRATE INJ 50 MCG/1 ML 2 ML VIAL ONE; +GLYCOPYRROLATE INJ 0.2 MG/ML VIAL ONE; +LACTATED RINGER'S 1000ML 1,000 ML IV SCH; +LACTATED RINGER'S 1000ML IV SCH; +LIDOCAINE 2% 20 MG/ML 5ML SYR ONE; +MIDAZOLAM HCL 1 MG/ML 2ML VIAL ONE; +NEOSTIGMINE METHYLSULFATE 5 MG/5 ML SYR ONE; -OXYC-57 PO; +PROPOFOL IV EMULSION 10 MG/ML 20 ML VIAL ONE; +ROCURONIUM BROMIDE 10 MG/ML 5 ML VIAL ONE
[2018-04-05 08:31] VITALS: BP 166/77; PULSE 66; TEMP 36.6; O2SAT 100; Ht 172.7 cm; Wt 84.5 kg
[2018-04-05] MEDS ORDERED: PROPOFOL IV EMULSION 10 MG/ML 20 ML VIAL ONE (08:36)
[2018-04-05] MEDS ORDERED: MIDAZOLAM HCL 1 MG/ML 2ML VIAL ONE ×2 (08:36)
[2018-04-05] MEDS ORDERED: LIDOCAINE HCL 2% 2 ML VIAL (20MG/ML) ONE (08:36)
[2018-04-05] MEDS ORDERED: FENTANYL CITRATE INJ 50 MCG/1 ML 2 ML VIAL ONE (08:36)
--- NOTE | 2018-04-05 08:36 | History & Physical Bridge Note ---
H&P Re-Evaluation Bridge Note: I have examined the patient, reviewed the History & Physical and in the interval since the performance of the History & Physical I have noted the following changes of clinical significance: No changes noted
[2018-04-05] MEDS ORDERED: EpINEphrine HCL INJ 1 MG/ML 1ML SYRINGE ONE (08:48)
[2018-04-05] MEDS ORDERED: BUPIVACAINE/EPINEPHRINE 0.5% MPF 1:200,000 30 ML VIAL ONE (08:48)
[2018-04-05] MEDS ORDERED: ROPIVACAINE 0.5% 5 MG/ML 30 ML VIAL ONE (09:03)
[2018-04-05] MEDS ORDERED: ONDANSETRON INJ 2 MG/ML 2 ML VIAL ONE (10:03)
[2018-04-05] MEDS ORDERED: EpHEDrine SULFATE 50MG/5ML SYR ONE (10:03)
[2018-04-05] MEDS ORDERED: DEXAMETHASONE SOD INJ 4 MG/ML VIAL ONE (10:03)
[2018-04-05] MEDS ORDERED: ONDANSETRON INJ 2 MG/ML 2 ML VIAL IV PRN ×2 (10:15→11:00)
[2018-04-05] MEDS ORDERED: FENTANYL CITRATE INJ 50 MCG/1 ML 2 ML VIAL IV PRN (10:15)
[2018-04-05] MEDS ORDERED: ATROPINE SULFATE 0.1 MG/ML 5ML SYR IV PRN (10:15)
[2018-04-05] MEDS ORDERED: EpHEDrine SULFATE INJ 50 MG/ML AMP IV PRN (10:15)
--- NOTE | 2018-04-05 10:40 | [facility] Post Operative Brief Note ---
Immediate Operative Summary Operative Date Apr 05, 2018. Pre-Operative Diagnosis Medium-sized right rotator cuff tear Post-Operative Diagnosis Same as preop Procedure(s) Performed Right Shoulder Arthroacopy with Medium Rotator Cuff Repair;[employer] Surgeon Dr. Casillas Learning [employer] Assistant Surgeon(s) Toño Ricardo PA-C Estimated Blood Loss 5 ml Findings Consistent with Post-Op Diagnosis Specimens None per Surgeon Anesthesia Type General Regional
[2018-04-05] MEDS ORDERED: OXYC-57 PO (10:48)
[2018-04-05] MEDS ORDERED: SODIUM CHLORIDE 0.9% 1000ML 1,000 ML IV SCH (10:50)
--- NOTE | 2018-04-05 10:50 | Discharge Instructions ---
Discharge Instructions Date of Service Apr 05, 2018. Admission Reason for Admission: Medium ROtator Cuff Tear Right Shoulder Discharge Discharge Diagnosis / Problem: SAME ABOVE Discharge Goals Goal(s): Decrease discomfort, Improve function Activity Recommendations Activity Limitations: as noted below Lifting Limitations: until after follow-up appointment Exercise/Sports Limitations: until after follow-up appointment Shower/Bathe: tomorrow . Instructions / Follow-Up Instructions / Follow-Up MEDICATIONS: * Resume previous medications unless instructed otherwise by your surgeon. * Always take pain medication on a full stomach or with food to avoid upset stomach. * Do not drink alcohol or drive while taking narcotics. * Ibuprofen or Tylenol may be taken if narcotic not needed. SPECIAL CARE INSTRUCTIONS: __ None _X_ Keep extremity elevated and iced x 48 hours; apply ice 20-30 minutes 8-10 times/day. May remove at night. __ Sling __24 hrs/day __ Remove at night _X_ Shoulder Immobilizer _X_ 24 hrs/day __ Remove at night _X_ Dressing __ Maintain until seen in office, may shower with plastic over site _X_ Remove dressings in 24-48 hours and then may shower _X_ Cover incisions with band-aids after showering __ Do not remove steri-strips Call physician if chills or temperature rises above 102 degrees or pain unrelieved by prescribed pain medications at . . Current Hospital Diet Patient's current hospital diet: Discharge Diet Recommended Diet: Regular Diet Fluid Restriction: None Procedures Procedures Performed: Right Shoulder Arthroacopy with Medium Rotator Cuff Repair;Bio-Tenodesis Pending Studies Studies pending at discharge: no Medical Emergencies . Who to Call and When: Medical Emergencies: If at any time you feel your situation is an emergency, please call 911 immediately. . Non-Emergent Contact Non-Emergency issues call your: Surgeon Call Non-Emergent contact if: your pain is not controlled, wound has increased drainage, wound has increased redness . "Provider Documentation" section prepared by Nahum Ricardo. .
--- NOTE | 2018-04-05 10:54 | OPERATIVE REPORT ---
DATE OF OPERATION: 04/05/2018 PREOPERATIVE DIAGNOSIS: Medium-sized rotator cuff tear of the right shoulder POSTOPERATIVE DIAGNOSES: Medium-sized rotator cuff tear and severe biceps tendinopathy of the right shoulder. PROCEDURE: Right shoulder diagnostic arthroscopy with limited debridement, acromioplasty, medium-sized rotator cuff repair and arthroscopic biceps tenodesis. SURGEON: Dr. Keyon Casillas. MEDICAL PARASITOLOGIST: Nahum Ricardo PA-C, whose assistance was necessary for retraction, helping with instrumentation and closure. ANESTHESIA: General with a right interscalene nerve block. COMPLICATIONS: None. CONDITION: Stable to PACU. INDICATIONS: Meg is a pleasant 72-year-old female who fell 2 years ago, initially injured her right shoulder. Her symptoms have waxed and waned, but in the past couple months become much worse. MRI and clinical examination were diagnostic for medium-sized rotator cuff tear. After failing conservative treatment, she elected to undergo cuff repair. DESCRIPTION OF PROCEDURE: On 04/05/2018, she arrived at [facility] for the above procedure. She was seen in the preoperative holding and the operative extremity was identified and signed. She was given a preoperative antibiotic and a right interscalene nerve block. She was taken back to the operating room, laid on the table in supine position and put under general anesthesia. She was put into the beach chair position. The right shoulder was prepped and draped in sterile fashion. Time-out was done and the patient's operative extremity was properly identified. A scope was introduced in the posterior portal. Diagnostic arthroscopy showed no cartilage damage to the humeral head or the glenoid. There was some fraying of the anterior labrum. There was significant fraying of the biceps tendon. The subscapularis was intact. There was a tear of the entire supraspinatus, the infraspinatus and teres minor were checked and intact. An anterior portal was made. A shaver was used to do a limited debridement of the intraarticular structures and the biceps tendon was arthroscopically tenotomized for later tenodesis. The scope was then put into the subacromial space. A lateral portal was made. A shaver was used to do a complete subacromial and subdeltoid bursectomy. I did not see a need to do an acromioplasty. Attention was turned to the rotator cuff. An additional anterolateral portal was made and Amanda cannulas were placed in each lateral portals. The tuberosity was then prepared with a ring curette and a microfracture. It was an L-shaped tear that extended up the anterior interval. The rotator cuff was then fixed with an Arthrex SpeedBridge configuration using 4.75 mm BioComposite SwiveLock suture anchors and FiberTapes. This gave a nice knotless SpeedBridge repair. Multiple pictures were taken. An additional FiberLink was placed in the far anterior supraspinatus and brought out to an additional SwiveLock suture anchor for added fixation. The long head of the biceps tendon was also tagged with a FiberLink and incorporated into the anterolateral anchor to complete an arthroscopic biceps tenodesis. Multiple pictures were taken. The scope was placed back into the glenohumeral joint and the articular margin of the rotator cuff had been restored. Pictures were taken. Arthroscopic instruments were removed from the shoulder. Portal sites were closed with 3-0 nylon. She was then placed in a soft dressing and an abduction arm sling. She was then extubated, transferred to a litter and taken to the postanesthesia care unit in stable condition. She tolerated the procedure well. I attest to the content of the Intraoperative Record and any orders documented therein. Any exception s are noted below.
[2018-04-05] MEDS ORDERED: OXYCODONE/ACETAMINOPHEN 5-325 TAB PO PRN ×2 (11:00)
[2018-04-05 11:40] VITALS: BP 146/77; PULSE 64; TEMP 36.4; O2SAT 97
--- NOTE | 2018-04-05 12:08 | Anesthesiology Progress Note ---
Anesthesia Post Op Note Date & Time Apr 05, 2018 at 12:08 Vital Signs Pain Intensity: 0 Vital Signs Past 12 Hours Date Time Temp Pulse Resp B/P (MAP) Pulse Ox O2 Delivery O2 Flow Rate FiO2 04/05/18 11:40 36.4 64 20 146/77 97 Room Air 04/05/18 11:30 36.1 66 17 145/66 96 Room Air 04/05/18 11:20 67 16 143/67 98 Room Air 04/05/18 11:10 66 18 145/71 99 Oxymask 10 04/05/18 11:00 36.0 64 15 163/72 100 Oxymask 10 04/05/18 10:51 36.0 69 16 150/64 100 Oxymask 10 04/05/18 08:31 36.6 66 18 166/77 (106) 100 Room Air Notes Mental Status: alert / awake / arousable, participated in evaluation Pt Amnestic to Procedure: Yes Nausea / Vomiting: adequately controlled Pain: adequately controlled Airway Patency, RR, SpO2: stable & adequate BP & HR: stable & adequate Hydration State: stable & adequate Anesthetic Complications: no major complications apparent Anesthetic Complications: block is functioning well.
[2018-04-05 12:14] VITALS: BP 135/69; PULSE 63; O2SAT 97
[2018-04-05 12:40] VITALS: BP 138/74; PULSE 61; TEMP 36.4; O2SAT 98
== END 2018-04-05 13:12 | disposition home or self-care (01) ==
LOC: C.ACU 08:12
PROVIDERS: ATTEND Orthopaedic Surgery
DX: S46.011A Strain of muscle(s) and tendon(s) of the rotator cuff of right shoulder, initial encounter (principal); W19.XXXA Unspecified fall, initial encounter; M67.813 Other specified disorders of tendon, right shoulder; I11.9 Hypertensive heart disease without heart failure; Z86.718 Personal history of other venous thrombosis and embolism; E03.9 Hypothyroidism, unspecified; E78.5 Hyperlipidemia, unspecified; M19.90 Unspecified osteoarthritis, unspecified site; Z79.01 Long term (current) use of anticoagulants; Z79.899 Other long term (current) drug therapy; Z82.49 Family history of ischemic heart disease and other diseases of the circulatory system